=== PATIENT | female | born 1970 | race Caucasian/White ===

== ENCOUNTER 2018-02-21 23:25 | Emergency (ER) | payer OTHER ==
[~2018-02-21] VITALS: Ht 160 cm; Wt 77.1 kg
--- NOTE | ~2018-02-21 | EKG ---
[place], [place] ELECTROCARDIOGRAM REPORT NAME: JANE LAZCANO UNIT #: [id number] ROOM: DOCTOR: EPIPHANY DRAFT REPORT BIRTHDATE: [birth year] [facility] Test Date: 2018-02-21 Test Time: 23:57:36 Pat Name: JANE LAZCANO Department: ER Room: Gender: F [facility]ilion Cutter: Radha Mobley : 1970 Requested By: ANGLE FLORES Order Number: [id number] Reading MD: Pravin Stephens MD Measurements Intervals [place] Rate: 47 P: 53 WA: 137 QRS: 12 QRSD: 121 T: 65 QT: 484 QTc: 428 Interpretive Statements Sinus bradycardia Nonspecific intraventricular conduction delay Minimal ST depression, lateral leads Electronically Signed On 02-24-2018 8:16:51 PST by Pravin Stephens MD CM:EKGRPT:ELECTROCARDIOGRAM REPORT [id number] ANGLE MENDOZA DRAFT REPORT ANGLE FLORES DO
[2018-02-22 00:02] LABS: BASO % 0.3 % (0.0-1.0); EOS # 0.1 10*3/uL (0.0-0.4); EOS % 0.9 % (1.0-4.0); HEMATOCRIT 34.5 % (37.0-47.0); HEMOGLOBIN 11.6 g/dl (12.0-16.0); LYMPH # 2.6 10*3/uL (1.3-4.4); MEAN CELL VOLUME 85.4 fl (81.0-99.0); MEAN CORPUSCULAR HGB 28.7 pg (27.0-31.0); MEAN CORPUSCULAR HGB CONC 33.6 g/dl (33.0-37.0); MEAN PLATELET VOLUME 9.6 fl (9.6-12.3); MONO # 0.7 10*3/uL (0.1-1.0); MONO % 7.3 % (3.0-9.0); NEUT # 6.5 10*3/uL (2.3-7.9); NEUT % 64.9 % (47.0-73.0); PLATELET COUNT AUTOMATED 260 10*3/uL (130-400); RED BLOOD COUNT 4.04 10*6/uL (4.10-5.10); RED CELL DISTRI WIDTH 12.9 % (0-14.5)
[2018-02-22 00:18] LABS: ALKALINE PHOSPHATASE 62 U/L (45-117); BUN 8 mg/dl (7-24); CHLORIDE 103 mmol/L (98-107); CREATININE 0.59 mg/dL (0.55-1.02); SGOT/AST 20 IU/L (3-35); SGPT/ALT 32 U/L (12-78); SODIUM 133 mmol/L (136-145); TOTAL PROTEIN 7.2 gm/dL (6.4-8.2)
[2018-02-22 00:20] LABS: ETHYL ALCOHOL < 3.0 mg/dl (<3)
[2018-02-22 00:28] LABS: BILIRUBIN NEGATIVE (NEGATIVE); BLOOD 1+ (NEGATIVE); CLARITY CLEAR (CLEAR); COLOR YELLOW (YELLOW); GLUCOSE NEGATIVE (NEGATIVE); KETONE 1+ (NEGATIVE); LEUKO ESTERASE NEGATIVE (NEGATIVE); NITRITE NEGATIVE (NEGATIVE); PH 6.5 (5.0-9.0); UROBILINOGEN 0.2 E.U./dl (0.2-1.0)
[2018-02-22 00:39] LABS: URINE AMPHETAMINES < 1000 (1000ng/ml); URINE BARBITURATES < 200 (200ng/ml); URINE BENZODIAZEPINES < 200 (200ng/ml); URINE CANNABINOIDS (THC) < 50 (50ng/ml); URINE COCAINE > 300 (300ng/ml); URINE METHADONE < 300 (300ng/ml); URINE OPIATES < 300 (300ng/ml); URINE PHENCYCLIDINE < 25 (25ng/ml)
[2018-02-22 00:48] LABS: WBC 0-2 wbc/hpf (0-5)
== END 2018-02-22 00:46 | disposition short-term general hospital (02) ==
LOC: ED 23:25
PROVIDERS: Emergency Medicine
DX: I62.00 Nontraumatic subdural hemorrhage, unspecified (principal); I10 Essential (primary) hypertension